=== PATIENT | male | born 1975 | race Hispanic/Latino ===

== ENCOUNTER 2018-04-08 12:52 | Emergency (ER) | payer OTHER ==
[2018-04-08] MEDS ORDERED: DUONEB *Not for PRN Use IH ONE (13:17)
[2018-04-08 13:22] VITALS: BP 143/81
[2018-04-08 13:28] LABS: Basophils # (Auto) 0.1 K/mm3 (0.0-0.1); Basophils % (Auto) 0.7 % (0.0-1.8); Eosinophils # (Auto) 0.1 K/mm3 (0.0-0.4); Eosinophils % (Auto) 0.5 % (0.0-4.3); Hematocrit 49.4 % (35.5-45.6); Hemoglobin 16.7 gm/dl (11.8-15.2); Lymphocytes # (Auto) 1.6 K/mm3 (1.2-5.4); Lymphocytes % (Auto) 15.6 % (13.4-35.0); Mean Corpuscular HGB Conc 34 % (32-34); Mean Corpuscular Volume 87 fl (84-94); Monocytes # (Auto) 0.7 K/mm3 (0.0-0.8); Monocytes % (Auto) 6.9 % (0.0-7.3); Platelet Count 328 K/mm3 (140-440); Red Blood Count 5.67 M/mm3 (3.65-5.03); Red Cell Distribution Width 13.3 % (13.2-15.2)
[2018-04-08 13:55] LABS: Alanine Aminotransferase 16 units/L (7-56); Albumin 4.7 g/dL (3.9-5); BUN/Creatinine Ratio 9; Blood Urea Nitrogen 10 mg/dL (9-20); Calcium 10.3 mg/dL (8.4-10.2); Hemolysis Index 25
--- NOTE | 2018-04-08 13:55 | XRay Report ---
PORTABLE CHEST INDICATION: Dyspnea. COMPARISON: None similar at this institution. FINDINGS: Portable, frontal chest radiograph demonstrates normal cardiomediastinal silhouette. Clear, well-expanded lungs. EKG leads. Intact bones. Lower cervical fusion hardware incompletely imaged. CONCLUSION: No acute chest process, as described. Thank you for the opportunity to participate in this patient's care.
[2018-04-08] MEDS ORDERED: SOLU-Medrol IV ONE (13:58)
--- NOTE | 2018-04-08 15:23 | Emergency Department Report ---
HPI - General Chief Complaint: Dyspnea/Respdistress Time Seen by Provider: 04/08/18 13:10 - HPI HPI: 42-year-old male presents to the emergency department with a complaint of shortness of breath that has been going on for the past 5 or 6 days. The patient recently was on a snowboarding trip in [place] and went to [place]. He felt short of breath almost immediately but attributed it to the altitude. He was using canned Oxygen and some herbal supplements to try and treat his symptoms. However the patient returned from his trip last night and continues to have shortness of breath. He felt like he got slightly better but it got worse this morning when the patient was at work and was working around an area where he could smell propane. He also complains of some tingling to the face and arms. He denies any chest pain, fever, nausea or vomiting. He is a former smoker with a [id number] history and just quit last month. He has not taken anything for her symptoms prior to presentation. ED Past Medical Hx - Past Medical History Previous Medical History?: No - Surgical History Past Surgical History?: Yes Additional Surgical History: c6- c7 replaced,3 in groin, right shoulder,eye - Social History Smoking Status: Never Smoker Substance Use Type: None - Medications Home Medications: Home Medications Medication Instructions Recorded Confirmed Last Taken Type ALBUTEROL Inhaler (OR & NICU) 2 puff IH QID PRN #1 inhalation 04/08/18 Unknown Rx [ProAir HFA Inhaler] Prednisone [predniSONE 10 mg 10 mg PO .TAPER 1 Days #1 tab.ds.pk 04/08/18 Unknown Rx (6-Day Pack, 21 Tabs)] ED Review of Systems ROS: Stated complaint: COLBY Other details as noted in HPI Comment: All other systems reviewed and negative Constitutional: denies: chills, fever Eyes: denies: eye pain, vision change ENT: denies: ear pain, throat pain Respiratory: cough, shortness of breath Cardiovascular: denies: palpitations, edema Gastrointestinal: denies: abdominal pain, vomiting Genitourinary: denies: dysuria, discharge Musculoskeletal: denies: back pain, arthralgia Skin: denies: rash, lesions Neurological: denies: headache, weakness Physical Exam - Physical Exam Vital Signs: Vital Signs 04/08/18 04/08/18 04/08/18 12:56 13:15 13:19 Temperature 97.5 F L Pulse Rate 98 H 73 Pulse Rate [ Throughout] Respiratory 26 H 19 18 Rate Respiratory Rate [ Throughout] Blood Pressure 143/93 Blood Pressure 143/81 [Left] O2 Sat by Pulse 98 98 97 Oximetry 04/08/18 04/08/18 13:44 14:04 Temperature Pulse Rate Pulse Rate [ 58 L 70 Throughout] Respiratory Rate Respiratory 17 17 Rate [ Throughout] Blood Pressure Blood Pressure [Left] O2 Sat by Pulse Oximetry Physical Exam: GENERAL: The patient is well-developed well-nourished. HEENT: Normocephalic. Atraumatic. Patient has moist mucous membranes. EYES: Extraocular motions are intact. Pupils are equal and reactive to light bilaterally. NECK: Supple. Trachea is midline. CHEST/LUNGS: Mild wheezing with expiration. There is some tachypnea and accessory muscle use. There is some respiratory distress noted. HEART/CARDIOVASCULAR: Regular. There is no tachycardia. There is no obvious murmur. ABDOMEN: Abdomen is soft, nontender. Patient has normal bowel sounds. There is no abdominal distention. SKIN: Skin is warm and dry. NEURO: The patient is awake, alert, and oriented. The patient is cooperative. The patient has no focal neurologic deficits. The patient has normal speech. MUSCULOSKELETAL: There is no tenderness or deformity. There is no limitation range of motion. There is no evidence of acute injury. ED Course Vital Signs 04/08/18 04/08/18 04/08/18 12:56 13:15 13:19 Temperature 97.5 F L Pulse Rate 98 H 73 Pulse Rate [ Throughout] Respiratory 26 H 19 18 Rate Respiratory Rate [ Throughout] Blood Pressure 143/93 Blood Pressure 143/81 [Left] O2 Sat by Pulse 98 98 97 Oximetry 04/08/18 04/08/18 13:44 14:04 Temperature Pulse Rate Pulse Rate [ 58 L 70 Throughout] Respiratory Rate Respiratory 17 17 Rate [ Throughout] Blood Pressure Blood Pressure [Left] O2 Sat by Pulse Oximetry - ABG Interpretation Ph: [phone] PCO2: 31 PO2: 94 Bicarbonate: 20 Interpretation: normal ED Medical Decision Making - Lab Data Result diagrams: 04/08/18 13:18 04/08/18 13:18 - EKG Data -: EKG Interpreted by Pa EKG shows normal: sinus rhythm, axis, intervals, QRS complexes (LVH), ST-T waves Rate: bradycardia (54 bpm) - EKG Data When compared to previous EKG there are: previous EKG unavailable Interpretation: LVH (with sinus bradycardia) - Radiology Data Radiology results: image reviewed interpreted by me: Chest x-ray does not show any pneumothorax, pleural effusion, pneumonia or obvious focal consolidation. - Medical Decision Making Patient presents with some shortness of breath that has been going on for the past 5 or 6 days but worsened after he smelled some propane gas. He presents with some signs of mild respiratory distress with some tachypnea, accessory muscle use. Patient was given supplemental oxygen and a breathing treatment and upon reevaluation after completing the DuoNeb, the patient no longer has any respiratory distress, tachypnea, etc. Chest x-ray does not show any focal consolidation, pneumothorax, pneumonia, pleural effusion, or any other acute processes. EKG did not show any signs of ST elevation [place] or dysrhythmia. Patient's labs were unremarkable including negative troponin and a negative d- dimer. Patient was also given a dose of Solu-Medrol. He was reevaluated multiple times over multiple hours and is feeling much better and has remained stable throughout the rest of his ED course. ABG did not show any hypercapnia, hypoxemia, or any acid base disorder. Patient did a lap around the emergency department and did not have any return of any respiratory distress or hypoxia. He will be discharged home with a steroid taper, albuterol inhaler. He will return to the elbow any worsening of symptoms or any acute distress. - Differential Diagnosis PE, Pneumonia, Asthma, COPD, Bronchitis Critical Care Time: No Critical care attestation.: If time is entered above; I have spent that time in minutes in the direct care of this critically ill patient, excluding procedure time. ED Disposition Clinical Impression: Shortness of breath, Bronchospasm Disposition: DC-01 TO HOME OR SELFCARE Is pt being admited?: No Condition: Stable Instructions: Dyspnea (ED), Bronchospasm (ED) Additional Instructions: Please follow up with a primary care physician in the next few days. Return to the emergency Department with any worsening of your symptoms or any acute distress. Prescriptions: ALBUTEROL Inhaler (OR & NICU) [ProAir HFA Inhaler] 2 puff IH QID PRN #1 inhala tion PRN Reason: Shortness Of Breath Prednisone [predniSONE 10 mg (6-Day Pack, 21 Tabs)] 10 mg PO .TAPER 1 Days #1 tab.ds.pk Time of Disposition: 15:30
== END 2018-04-08 15:51 | disposition home or self-care (01) ==
LOC: ED 12:52
DX: R06.02 Shortness of breath (principal); J98.01 Acute bronchospasm
CPT/HCPCS: 36415; 71045; 80053; 82803; 83880; 84484; 85025; 85379; 93005; 93010; 94640; 96374; 99284; J2930